=== PATIENT | female | born 1990 | race Two or more races ===

== ENCOUNTER 2019-07-24 21:08 | Emergency (ER) | payer SELFPAY ==
[~2019-07-24] VITALS: Ht 165.1 cm; Wt 54.4 kg
--- NOTE | 2019-07-24 21:15 | NUR ---
PT [place] AND PD D/T WEIRD BEHAVIOR AND ON THE STREETS. DENIES SI/HI. INCOHERENT, DELIRIOUS, POOR HISTORIAN. NO ACUTE DISTRESS NOTED. CONNECTED TO THE MONITOR AND POX
[2019-07-24 21:32] LABS: BASOPHILS % (AUTO) 0.5 % (0.0-2.0); EOSINOPHILS % (AUTO) 0.6 % (0.0-6.0); HEMATOCRIT 39 % (33-45); HEMOGLOBIN 12.8 g/dL (11.5-14.8); LYMPHOCYTES # (AUTO) 3.1 /CMM (0.8-4.8); LYMPHOCYTES % (AUTO) 36.4 % (20.0-44.0); MEAN CORPUSCULAR HGB CONC 32 g/dl (31.0-36.0); MEAN CORPUSCULAR VOLUME 85 fL (82-100); MONOCYTES # (AUTO) 1.2 /CMM (0.1-1.30); MONOCYTES % (AUTO) 14.6 % (2.0-12.0); NEUTROPHILS # (AUTO) 4.1 /CMM (1.8-8.9); NEUTROPHILS % (AUTO) 47.9 % (43.0-81.0); PLATELET COUNT (AUTO) 310 /CMM (150-450); RED BLOOD CELL COUNT(AUTO) 4.64 MIL/uL (4.0-5.2); WHITE BLOOD COUNT (AUTO) 8.5 K/uL (4.3-11.0)
[2019-07-24 21:41] LABS: CALCIUM, SERUM 9.1 mg/dL (8.5-10.1); CARBON DIOXIDE 23 mmol/L (21-32); CHLORIDE 103 mmol/L (98-107); CREATININE 1.8 mg/dL (0.6-1.3); GLUCOSE 100 mg/dL (74-106); POTASSIUM 3.5 mmol/L (3.5-5.1); SODIUM SERUM 140 mmol/L (136-145); UREA NITROGEN, BLOOD 22 mg/dL (7-18)
[2019-07-24 21:47] LABS: ACETAMINOPHEN 0 ug/ml (10-30); ALANINE AMINOTRANSFERASE 16 U/L (12-78); ALBUMIN 4.2 g/dL (3.4-5.0); ALCOHOL, BLOOD < 3 mg/dL (0-0); ALKALINE PHOSPHATASE 129 U/L (46-116); ASPARTATE AMINOTRANSFERASE 15 U/L (15-37); BILIRUBIN,DIRECT 0.2 mg/dL (0.0-0.2); BILIRUBIN,TOTAL 0.9 mg/dL (0.2-1.0); SALICYLATE 2.9 mg/dL (2.8-20.0); TOTAL PROTEIN, SERUM 8.6 g/dL (6.4-8.2)
--- NOTE | 2019-07-25 00:10 | NUR ---
UNABLE TO OBTAIN URINE. MADE AWARE
--- NOTE | 2019-07-25 01:49 | NUR ---
PATIENT IS SLEEPING. EASILY AROUSED THROUGH TOUCH AND MECHANICAL STIMULI. BREATHING EVENLY AND UNLABORED ON ROOM AIR. CONNECTED TO MONITOR. SITTER AT BEDSIDE.
--- NOTE | 2019-07-25 04:58 | NUR ---
PT RESTING COMFORTABLY IN BED. VSS. NO ACUTE DISTRESS NOTED. SITTER AT BEDSIDE FOR SAFETY.
--- NOTE | 2019-07-25 05:44 | NUR ---
URINE COLLECTED AND SENT TO LAB
[2019-07-25 06:14] LABS: APPEARANCE,URINE SL CLOUDY (CLEAR); BILIRUBIN,URINE NEGATIVE (NEGATIVE); BLOOD, URINE NEGATIVE Ery/uL (NEGATIVE); COLOR,URINE DARK YELLO (YELLOW); KETONES,URINE NEGATIVE (NEGATIVE); LEUKOCYTE ESTERASE ,URINE NEGATIVE (NEGATIVE); NITRITE, URINE POSITIVE (NEGATIVE); PH,URINE 5.5 (5.0-8.0); PROTEIN,URINE 100 mg/dl (NEGATIVE); UGLUCOSE NEGATIVE (NEGATIVE); UROBILINOGEN,URINE 0.2 EU/dL (0.2)
[2019-07-25 06:18] LABS: RBC,URINE 0-2 /HPF (0-2)
[2019-07-25 06:19] LABS: BACTERIA,URINE Many /HPF (None Seen); SQUAMOUS EPITHELIAL CELL,UR Many /HPF (None Seen)
--- NOTE | 2019-07-25 07:22 | NUR ---
REPORT GIVEN TO LIONEL DESAI FOR BENNIE
[2019-07-25] MEDS ORDERED: OLANZAPINE 10 MG VIAL IM ONE ×2 (07:49→08:00)
[2019-07-25] MEDS ORDERED: CEPHALEXIN MONOHYDRATE 500 MG CAPSULE PO ONE ×2 (07:50→08:00)
--- NOTE | 2019-07-25 08:07 | NUR ---
Assumed care report given by Sarai FLOWERS , seen patient with order continue to monitor
--- NOTE | 2019-07-25 08:58 | NUR ---
MARCELLA NOTE: SW received consult for 29 year old homeless pt BIB [employer] due to weird behavior and paranoia. Per ER medical note pt was found confused and wandering in the street, pt is incoherent and a poor historian. Upon review of pts medical chart pts UDS was positive for Amphetamines and Cannabinoids. Upon social work evaluation, pt presents laying in bed covered with a blanket from head to toe. Pt was not easily aroused by verbal cues. MARCELLA requested the assistance of [employer] INS[employer]ANCE UNDERWRITER and RN to assist with arousing pt. Pt briefly became alert but was somnolent and lethargic and appeared paranoid. Pt was unable to state her name or state her location. Per RN pt had recently received Zyprexa due to agitation and paranoia. MARCELLA will follow up with pt at a later time.
--- NOTE | 2019-07-25 10:21 | NUR ---
Patient asleep but arousable vitals taken and filed continue to monitor sitter @ bedside
--- NOTE | 2019-07-25 10:30 | NUR ---
SW NOTE: SW attempted to evaluate pt, pt was asleep and was not easily aroused by touch or verbal cues. Pt appears sedated. SW will leave handoff for unit CAR [facility] to follow up for possible voluntary placement.
--- NOTE | 2019-07-25 14:14 | NUR ---
CALLED [facility] [phone] ETA 90 MINS.
[2019-07-25 15:26] VITALS: BP 136/75
--- NOTE | 2019-07-25 15:27 | NUR ---
Patient eyes close arousable per metalizing machine operator sitter patient ate 95 % no vomiting continue to monitor
--- NOTE | 2019-07-25 16:36 | NUR ---
MONI ETA 30 MIN
--- NOTE | 2019-07-25 18:22 | NUR ---
Patient awake alert DC home instruction decline to listen refused to get the copy and she refused to sign patient able to ambulated non difficulties she refused to have precription place on filed Md aware
== END 2019-07-25 18:26 | disposition home or self-care (01) ==
LOC: ER 21:10
DX: R46.89 Other symptoms and signs involving appearance and behavior (principal); N28.9 Disorder of kidney and ureter, unspecified; R41.0 Disorientation, unspecified; Z59.0 Homelessness; Z04.6 Encounter for general psychiatric examination, requested by authority
CPT/HCPCS: 36415; 71045; 80048; 80076; 80305; 80307; 80329; 81001; 84702; 85025; 87086; 96372; 99285; G0480; J3490; 81000-TC